=== PATIENT | female | born 1990 | race American Indian/Alaskan Native ===

== ENCOUNTER 2018-11-26 21:58 | Emergency (ER) | payer SELFPAY ==
--- NOTE | 2018-11-26 22:11 | Emergency Department Report ---
Blank Doc - Documentation Documentation: 28-year-old female that presents with left ring finger lac. This initial assessment/diagnostic orders/clinical plan/treatment(s) is/are subject to change based on patient's health status, clinical progression and re- assessment by fellow clinical providers in the ED. Further treatment and workup at subsequent clinical providers discretion. Patient/guardians urged not to elope from the ED as their condition may be serious if not clinically assessed and managed. Initial orders include: 1- Patient sent to [facility] for further evaluation and treatment
[2018-11-27] MEDS ORDERED: XYLOCAINE 1% MPF 5 mL INFILTRATI ONE (00:16)
[2018-11-27] MEDS ORDERED: TYLENOL PO ONE (00:16)
[2018-11-27] MEDS ORDERED: IBUPROFEN PO ONE (00:16)
--- NOTE | 2018-11-27 00:34 | Emergency Department Report ---
- General Chief Complaint: Wound/Laceration Stated Complaint: LACERATION TO FINGER Time Seen by Provider: 11/26/18 22:11 Source: patient Mode of arrival: Ambulatory Limitations: No Limitations - History of Present Illness Initial Comments: Patient is a 28-year-old female presents emergency room with complaints of a laceration to the left ring finger that occurred just prior to arrival. Patient states that she was holding her keys around her finger in the [place] got caught on something and pulled which caused a laceration. She states that she has not been moving the finger very much secondary to pain. She denies any numbness or weakness. She states that her last tetanus immunization has been within the last 5 years. she denies any allergies medications. - Related Data Allergies Allergy/AdvReac Type Severity Reaction Status Date / Time No Known Allergies Allergy Verified 11/26/18 22:03 ED Review of Systems ROS: Stated complaint: LACERATION TO FINGER Other details as noted in HPI Comment: All other systems reviewed and negative ED Past Medical Hx - Social History Smoking Status: Never Smoker Substance Use Type: None ED Physical Exam - General Limitations: No Limitations General appearance: alert, in no apparent distress - Head Head exam: Present: atraumatic, normocephalic - Eye Eye exam: Present: normal appearance - ENT ENT exam: Present: mucous membranes moist - Extremities Exam Extremities exam: Present: other (2.5 cm laceration to the palmar surface of the left ring finger, it is vertical down the finger, superficial, no foreign body present, neurovascularly intact, FROM of the left ring finger, TTP and edema present to the left ring finger, brisk cap refill) - Neurological Exam Neurological exam: Present: alert, oriented X3 - Psychiatric Psychiatric exam: Present: normal affect, normal mood - Skin Skin exam: Present: warm, dry ED Course Vital Signs 11/27/18 11/27/18 11/27/18 00:42 02:02 05:33 Pulse Rate 64 64 Respiratory 16 16 16 Rate Blood Pressure 145/98 145/98 [Right] O2 Sat by Pulse 99 99 Oximetry - Laceration /Wound Repair Left Palm Finger Wound Location: upper extremity Wound Length (cm): 2 (2.5 cm) Wound's Depth, Shape: superficial, irregular Wound Explored: clean Irrigated w/ Saline (ccs): 100 Betadine Prep?: Yes Anesthesia: 1% Lidocaine Volume Anesthetic (ccs): 8 Wound Debrided: minimal Wound Repaired With: Steri-strips Suture Size/Type: 4:0 Number of Sutures: 7 Layer Closure?: No Sterile Dressing Applied?: Yes Progress: Wound irrigated with saline and explored no tendon or muscle involvement, no foreign body, thoroughly scrubbed with Betadine, 8 mL of 1% lidocaine without epinephrine used as anesthetic, digital block performed of the left ring finger, Betadine prep again, sterile gloves worn, sterile drapes applied, 4-0 Prolene used for skin closure, 7 sutures placed in simple interrupted pattern, patient tolerated well, no complications, bleeding controlled, sterile dressing applied ED Medical Decision Making - Lab Data Vital Signs 11/27/18 11/27/18 11/27/18 00:42 02:02 05:33 Pulse Rate 64 64 Respiratory 16 16 16 Rate Blood Pressure 145/98 145/98 [Right] O2 Sat by Pulse 99 99 Oximetry - Radiology Data Radiology results: report reviewed Left hand 3 views INDICATION: Left hand pain following injury IMPRESSION: Prominent laceration of the left ring finger without other fracture or subluxation. No foreign body. Signer Name: Jairo Montgomery MD Signed: 11/27/2018 12:46 AM Workstation Name: [id number] Transcribed By: Dictated By: Jairo Montgomery MD Electronically Authenticated By: Jairo Montgomery MD Signed Date/Time: 11/27/18 0046 - Medical Decision Making Patient is a 28-year-old female presents emergency room with complaints of a laceration to the left ring finger that occurred just prior to arrival. Patient states that she was holding her keys around her finger in the [place] got caught on something and pulled which caused a laceration. She states that she has not been moving the finger very much secondary to pain. She denies any numbness or weakness. She states that her last tetanus immunization has been within the last 5 years. she denies any allergies medications. vitals are stable. on exam: 2.5 cm laceration to the palmar surface of the left ring finger, it is vertical down the finger, superficial, no foreign body present, neurovascularly intact, FROM of the left ring finger, TTP and edema present to the left ring finger, brisk cap refill. XR left hand: Prominent laceration of the left ring finger without other fracture or subluxation. No foreign body. Wound irrigated with saline and thoroughly scrubbed with Betadine. Laceration repaired per procedure note. Discussed with patient that sutures would need to be removed in 7 days. advised to Please keep area clean, dry, covered. May wash with soap and water and immediately dry. No hot tub, pool, soaking in water. Follow-up with a primary care doctor in the next 3-5 days for reexamination. return to the emergency room for any new or worsening symptoms or any signs of infection including but not limited to redness, swelling, pus drainage, fever, etc. Critical care attestation.: If time is entered above; I have spent that time in minutes in the direct care of this critically ill patient, excluding procedure time. ED Disposition Clinical Impression: Laceration Disposition: DC- TO HOME OR SELFCARE Is pt being admited?: No Does the pt Need Aspirin: No Condition: Stable Instructions: Suture Care (ED), Laceration (ED) Additional Instructions: Please keep area clean, dry, covered. May wash with soap and water and immediately dry. No hot tub, pool, soaking in water. Follow-up with a primary care doctor in the next 3-5 days for reexamination. return to the emergency room for any new or worsening symptoms or any signs of infection including but not limited to redness, swelling, pus drainage, fever, etc. Referrals: [facility] [Provider Group] - 3-5 Days Forms: Work/School Release Form(ED) Time of Disposition: 01:43 Print Language: MAURITANIAN
--- NOTE | 2018-11-27 00:51 | XRay Report ---
Left hand 3 views INDICATION: Left hand pain following injury IMPRESSION: Prominent laceration of the left ring finger without other fracture or subluxation. No fo reign body. Signer Name: Jairo Montgomery MD Signed: 11/27/2018 12:46 AM Workstation Name: [id number]
[2018-11-27 05:32] VITALS: BP 145/98
== END 2018-11-27 02:10 | disposition home or self-care (01) ==
LOC: ED 21:58
DX: S61.215A Laceration without foreign body of left ring finger without damage to nail, initial encounter (principal); W23.0XXA Caught, crushed, jammed, or pinched between moving objects, initial encounter; Y93.89 Activity, other specified; Y92.89 Other specified places as the place of occurrence of the external cause; Y99.8 Other external cause status